=== PATIENT | male | born 1980 | race African-American/Black ===

== ENCOUNTER 2018-09-27 14:21 | Emergency (ER) | payer MEDICAID ==
[~2018-09-27] VITALS: Ht 172.7 cm; Wt 105.0 kg
[2018-09-27] MEDS ORDERED: KETOROLAC 30MG/ML VIAL IM ONE (15:45)
[2018-09-27 16:31] VITALS: BP 116/79
== END 2018-09-27 16:31 | disposition home or self-care (01) ==
LOC: ER 14:21
DX: M54.5 Low back pain (principal); X50.9XXA Other and unspecified overexertion or strenuous movements or postures, initial encounter; Y93.67 Activity, basketball; Y92.89 Other specified places as the place of occurrence of the external cause; Y99.8 Other external cause status
CPT/HCPCS: 96372; 99283; J1885

== ENCOUNTER 2018-12-03 11:10 | Emergency (ER) | payer MEDICAID, OTHER ==
[~2018-12-03] VITALS: Ht 172.7 cm; Wt 104.0 kg
[2018-12-03] MEDS ORDERED: IBUPROFEN 800MG TABLET PO ONE (13:15)
[2018-12-03 13:35] VITALS: BP 118/77
== END 2018-12-03 14:05 | disposition home or self-care (01) ==
LOC: ER 11:10
DX: J06.9 Acute upper respiratory infection, unspecified (principal)
CPT/HCPCS: 71045; 87070; 87430; 99283

== ENCOUNTER 2019-02-04 23:10 | Emergency (ER) | payer OTHER ==
[~2019-02-04] VITALS: Ht 172.7 cm; Wt 110.0 kg
[2019-02-04 23:35] VITALS: BP 126/70
[2019-02-05] MEDS ORDERED: KETOROLAC 60MG/2ML VIAL IM STA (00:08)
[2019-02-05 00:53] LABS: CLARITY URINE CLEAR (CLEAR); COLOR URINE YELLOW (YELLOW); KETONES URINE NEGATIVE (NEGATIVE); LEUKOCYTE ESTERASE URINE NEGATIVE (NEGATIVE); NITRITE URINE NEGATIVE (NEGATIVE); OCCULT BLOOD URINE NEGATIVE (NEGATIVE); PH URINE 5.5 (4.5-8.0); PROTEIN URINE NEGATIVE (NEGATIVE); SPECIFIC GRAVITY URINE 1.027 (1.005-1.030); UROBILINOGEN URINE 0.2 E.U./dL (0.2-1.0)
== END 2019-02-05 01:15 | disposition home or self-care (01) ==
LOC: ER 23:10
DX: M54.5 Low back pain (principal)
CPT/HCPCS: 81003; 96372; 99283; J1885

== ENCOUNTER 2019-04-09 12:32 | Emergency (ER) | payer OTHER ==
[~2019-04-09] VITALS: Ht 172.7 cm; Wt 100.0 kg
[2019-04-09 15:38] VITALS: BP 120/80
== END 2019-04-09 15:39 | disposition home or self-care (01) ==
LOC: ER 12:32
DX: K04.7 Periapical abscess without sinus (principal)
CPT/HCPCS: 99281

== ENCOUNTER 2021-01-24 09:36 | Emergency (ER) | payer SELFPAY ==
[~2021-01-24] VITALS: Ht 172.7 cm; Wt 105.0 kg
[~2021-01-24 09:36] MED LIST: BACL-141 MT; IBUP-2029 MT; LIDO700A15 TP
[2021-01-24] MEDS ORDERED: NAPR-681 MT (10:29)
[2021-01-24] MEDS ORDERED: METH-653 MT (10:29)
[2021-01-24] MEDS ORDERED: TRAM50TA94 MT (10:29)
[2021-01-24] MEDS ORDERED: KETOROLAC 30MG/ML VIAL IM SCH (10:30)
[2021-01-24] MEDS ORDERED: TRAMADOL 50MG TABLET PO SCH (10:45)
[2021-01-24 11:01] VITALS: BP 110/70
== END 2021-01-24 11:01 | disposition home or self-care (01) ==
LOC: ER 09:36
DX: M54.41 Lumbago with sciatica, right side (principal); S39.012A Strain of muscle, fascia and tendon of lower back, initial encounter; M62.830 Muscle spasm of back; X58.XXXA Exposure to other specified factors, initial encounter; Y93.89 Activity, other specified; Y92.89 Other specified places as the place of occurrence of the external cause
CPT/HCPCS: 96372; 99283; J1885